=== PATIENT | female | born 1965 | race Caucasian/White ===

== ENCOUNTER 2022-06-06 11:31 | Emergency (ER) | payer OTHER, SELFPAY ==
[2022-06-06] VITALS (13 sets, daily range): BP systolic 109–125; BP diastolic 53–71; PULSE 74–83; RESP 14–28; TEMP 37.2; O2SAT 94–100; BMI 31.2
--- NOTE | 2022-06-06 12:22 | ED.WOUNDLAC ---
HPI - Wound/Laceration General Chief Complaint: Wound/Laceration Stated Complaint: poss. staff infection Time Seen by Provider: 06/06/22 12:20 Source: patient Mode of arrival: Ambulatory History of Present Illness HPI narrative: Patient is a 56-year-old female who presents with facial rash. She says that for last 1 week she has had fever on upper respiratory like symptoms. She has taken multiple COVID test they have all been negative. She then developed a facial rash over the last 3 days which has gotten worse over the last 24 hours. [place] with azithromycin. She states she lives in [place] she came here recently to help with her daughter. Labeled have been sick with body aches and fevers. She denies any itching. She has taken some antihistamines. She overall does not feel well. Related Data Previous Rx's Medication Instructions Recorded cephalexin 500 mg capsule 500 mg PO TID #21 caps 06/06/22 Review of Systems Review of Systems Narrative: GENERAL: Fevers body see HPI HEENT: Denies sinus pain, ear pain, sore throat, difficulty swallowing, neck pain RESPIRATORY: Denies dyspnea, cough, wheezing, hemoptysis, sputum. CARDIOVASCULAR: Denies chest pain, palpitations, orthopnea, edema GASTROINTESTINAL: Denies nausea, vomiting, abdominal pain, diarrhea, constipation, melena. : Denies dysuria, frequency, incontinence, hematuria, urinary retention, flank pain. MUSCULOSKELETAL: Denies weakness, joint pain, or bony pain SKIN: See HPI NEUROLOGIC: Denies weakness, dizziness, headache, numbness, change in speech, confusion PSYCHIATRIC: No concerning psychosocial issues. 12 point review of systems is negative except for those stated above and HPI Patient History Surgical History History of third molar tooth extraction Status post knee surgery Family History Brother Age: 60 Hypertension Grandmother Heart disease Grandfather Age: 71 Bladder cancer Grandmother Heart disease alcohol intake frequency: holidays/special occasions only Exam Initial Vital Signs Initial Vital Signs: Vital Signs Temperature 99 F 06/06/22 11:41 Pulse Rate 83 06/06/22 11:41 Respiratory Rate 20 06/06/22 11:41 Blood Pressure 125/61 06/06/22 11:41 Pulse Oximetry 100 06/06/22 11:41 Oxygen Delivery Method 06/06/22 11:41 GENERAL: Alert 56-year-old female and in [no acute] distress. HEENT: Head atraumatic,EOMI, pupils reactive, face symmetric, [moist] mucous membranes CARDIOVASCULAR: Regular rate and rhythm without murmurs, rubs or gallops. RESPIRATORY: Breath sounds equal bilaterally, no wheezes rales or rhonchi. ABDOMEN: Soft, nontender. Normoactive bowel sounds all 4 quadrants. No guarding or rebound. EXTREMITIES: Normal range of motion, no clubbing or edema. Neurovascularly intact NEUROLOGICAL: Alert and oriented x4.Normal gait and speech. SKIN: Significant erythema over forehead. No pox like or vesicular lesions. Bilateral. Course Orders Ordered: ED Orders 06/06/22 12:00 CBC Auto Diff [Complete Blood Count AUTO DIFF] Stat CMP [Comprehensive Metabolic Panel] Stat Lactate (Lactic Acid) Stat Procalcitonin Stat 06/06/22 12:46 Respiratory Panel (Film Array) Stat 06/06/22 12:50 Blood Culture Stat Discontinued Medications Ceftriaxone Sodium 1,000 mg/ (Sodium Chloride) 100 mls @ 200 mls/hr IV NOW ONE Stop: 06/06/22 12:34 Last Infusion: 06/06/22 13:39 Dose: 0 mls/hr Documented By: Admin: 06/06/22 12:56 Dose: 200 mls/hr Documented By: AMU Methylprednisolone (Methylprednisolone 125 Mg/2 Ml Vial) 125 mg IV NOW ONE Stop: 06/06/22 12:34 Last Admin: 06/06/22 12:56 Dose: 125 mg Documented By: AMU Vital Signs Vital signs: Vital Signs - 8 hr 06/06/22 11:41 06/06/22 11:51 06/06/22 11:52 Temperature 99 F Pulse Rate 83 82 Respiratory Rate 20 19 Blood Pressure 125/61 118/57 L Pulse Oximetry 100 99 Oxygen Delivery Method Room Air 06/06/22 11:52 06/06/22 12:00 06/06/22 12:00 Temperature Pulse Rate 81 78 Respiratory Rate 24 16 Blood Pressure 125/58 L Pulse Oximetry 97 97 Oxygen Delivery Method 06/06/22 12:30 06/06/22 12:30 06/06/22 13:00 Temperature Pulse Rate 80 74 Respiratory Rate 24 24 Blood Pressure 124/71 Pulse Oximetry 95 95 Oxygen Delivery Method 06/06/22 13:01 06/06/22 13:01 06/06/22 13:30 Temperature Pulse Rate 78 Respiratory Rate 14 Blood Pressure 114/53 L 119/57 L Pulse Oximetry 96 Oxygen Delivery Method 06/06/22 13:30 06/06/22 14:00 06/06/22 14:01 Temperature Pulse Rate 74 76 75 Respiratory Rate 16 28 H 24 Blood Pressure Pulse Oximetry 96 96 95 Oxygen Delivery Method 06/06/22 14:01 06/06/22 14:30 06/06/22 14:31 Temperature Pulse Rate 75 78 Respiratory Rate 24 19 Blood Pressure 109/55 L Pulse Oximetry 94 96 Oxygen Delivery Method 06/06/22 14:31 06/06/22 15:00 06/06/22 15:00 Temperature Pulse Rate 74 Respiratory Rate 20 Blood Pressure 111/59 L 123/58 L Pulse Oximetry 94 Oxygen Delivery Method MDM - Wound/Laceration Lab Data Result diagrams: 06/06/22 12:00 06/06/22 12:00 Labs: Lab Results 06/06/22 06/06/22 06/06/22 Range/Units 12:00 12:00 12:00 WBC 9.3 (4.5-11.0) X10^3/uL RBC 4.40 (4.0-5.2) X10^6/uL Hgb 13.7 (12.0-16.0) g/dL Hct 39.0 (36-46) % MCV 88.5 (80-100) fL MCH 31.0 (26-34) PG MCHC 35.1 (30-36) % RDW 13.6 (11.6-14.8) % Plt Count 234 (150-400) X10^3/uL Neut % (Auto) 71.9 (50-75) % Lymph % (Auto) 19.6 L (25-40) % [place] % (Auto) 7.9 (3-14) % Eos % (Auto) 0.1 L (2-4) % Baso % (Auto) 0.5 (0-2) % Neut # (Auto) 6700 (6756-6845) /uL Lymph # (Auto) 1800 (1286-2374) /uL [place] # (Auto) 700 (0-900) /uL Eos # (Auto) 0 (0-450) /uL Baso # (Auto) 0 (0-100) /uL Sodium 139 (137-145) mmol/L Potassium 3.7 (3.4-5.1) mmol/L Chloride 104 (98-107) mmol/L Carbon Dioxide 24 (22-32) mmol/L BUN 12 (7-17) mg/dL Creatinine 0.79 (0.52-1.04) mg/dL Estimated GFR > 60 (>60) mL/min BUN/Creatinine Ratio 15.2 (6-22) Glucose 135 H (70-100) mg/dL Lactate 1.4 (0.7-2.1) mmol/L Calcium 8.8 (8.4-10.2) mg/dL Total Bilirubin 0.5 (0.2-1.3) mg/dL AST 42 H (14-36) IU/L ALT 61 H (<35) IU/L Alkaline Phosphatase 82 (38-126) U/L Total Protein 8.0 (6.3-8.2) g/dL Albumin 4.6 (3.5-5.0) g/dL Globulin 3.4 (1.7-4.1) g/dL Albumin/Globulin Ratio 1.4 (1.0-2.8) Procalcitonin 0.21 (<0.5) ng/mL Chlamy pneumoniae PCR (Not Detect) Adenovirus (PCR) (Not Detect) B. pertussis DNA (PCR) (Not Detecte) B.parapertussis DNA PCR (Not Detecte) Coronavirus OC43 (PCR) (Not Detect) Coronavirus HKU1 (PCR) (Not Detect) Coronavirus 229E (PCR) (Not Detect) SARS-CoV-2 (PCR) (Not Detecte) Coronavirus NL63 (PCR) (Not Detect) Human Metapneumovir PCR (Not Detect) Influenza Type A (PCR) (Not Detect) Influenza Type B (PCR) (Not Detect) M. pneumoniae (PCR) (Not Detect) Parainfluenza 1 (PCR) (Not Detect) Parainfluenza 2 (PCR) (Not Detect) Parainfluenza 3 (PCR) (Not Detect) Parainfluenza 4 (PCR) (Not Detect) RSV (PCR) (Not Detect) Entero/Rhino (PCR) (Not Detect) 06/06/22 Range/Units 12:46 WBC (4.5-11.0) X10^3/uL RBC (4.0-5.2) X10^6/uL Hgb (12.0-16.0) g/dL Hct (36-46) % MCV (80-100) fL MCH (26-34) PG MCHC (30-36) % RDW (11.6-14.8) % Plt Count (150-400) X10^3/uL Neut % (Auto) (50-75) % Lymph % (Auto) (25-40) % [place] % (Auto) (3-14) % Eos % (Auto) (2-4) % Baso % (Auto) (0-2) % Neut # (Auto) (5835-7533) /uL Lymph # (Auto) (4460-8454) /uL [place] # (Auto) (0-900) /uL Eos # (Auto) (0-450) /uL Baso # (Auto) (0-100) /uL Sodium (137-145) mmol/L Potassium (3.4-5.1) mmol/L Chloride (98-107) mmol/L Carbon Dioxide (22-32) mmol/L BUN (7-17) mg/dL Creatinine (0.52-1.04) mg/dL Estimated GFR (>60) mL/min BUN/Creatinine Ratio (6-22) Glucose (70-100) mg/dL Lactate (0.7-2.1) mmol/L Calcium (8.4-10.2) mg/dL Total Bilirubin (0.2-1.3) mg/dL AST (14-36) IU/L ALT (<35) IU/L Alkaline Phosphatase (38-126) U/L Total Protein (6.3-8.2) g/dL Albumin (3.5-5.0) g/dL Globulin (1.7-4.1) g/dL Albumin/Globulin Ratio (1.0-2.8) Procalcitonin (<0.5) ng/mL Chlamy pneumoniae PCR Not detected (Not Detect) Adenovirus (PCR) Not detected (Not Detect) B. pertussis DNA (PCR) Not detected (Not Detecte) B.parapertussis DNA PCR Not detected (Not Detecte) Coronavirus OC43 (PCR) Not detected (Not Detect) Coronavirus HKU1 (PCR) Not detected (Not Detect) Coronavirus 229E (PCR) Not detected (Not Detect) SARS-CoV-2 (PCR) Not detected (Not Detecte) Coronavirus NL63 (PCR) Not detected (Not Detect) Human Metapneumovir PCR Not detected (Not Detect) Influenza Type A (PCR) Not detected (Not Detect) Influenza Type B (PCR) Not detected (Not Detect) M. pneumoniae (PCR) Not detected (Not Detect) Parainfluenza 1 (PCR) Not detected (Not Detect) Parainfluenza 2 (PCR) Not detected (Not Detect) Parainfluenza 3 (PCR) Not detected (Not Detect) Parainfluenza 4 (PCR) Not detected (Not Detect) RSV (PCR) Not detected (Not Detect) Entero/Rhino (PCR) Not detected (Not Detect) MDM Narrative Medical decision making narrative: The patient has had what sounds like upper respiratory like infection with high fevers her daughter and had something similar. However she today has facial rash. Does not seem to be shingles in nature it is bilateral across real forehead there are no vesicles. There are no pox to suggest a Monkey pox infection. Probable cellulitis although blood work is overall reassuring. Also considered allergic reaction with female of swelling however she does not have any other swelling or hives anywhere else on her body. She is given a dose of Solu-Medrol which she feels like has helped some of the swelling and a dose of IV antibiotics Rocephin. Azithromycin not appropriate skin antibiotic she has changed over to Keflex she has no risk factors for MRSA at this time. Her respiratory panel also found to be negative. Discharge Plan Departure Patient Disposition: Home Clinical Impression: Cellulitis of face Instructions: Cellulitis Activity Restrictions/Additional Instructions: *You have been diagnosed with facial cellulitis *What to do: At this time blood work is overall reassuring. Probable cellulitis of her face. Will try antibiotics for 1 week to see if there is improvement. *Continue to take medications as directed Keflex 500 mg 3 times a day *Follow up with your primary care provider in 2-3 days or call [phone] *Return to ER if you should have increased redness, difficulty breathing, persistent fever or any new, worsening or concerning symptoms Prescriptions: New cephalexin 500 mg capsule 500 mg PO TID Qty: 21 0RF Referrals: Brenda Rosa ARNP [Primary Care Provider] - Visit Report Forms: Patient Portal/API
[2022-06-06 12:28] LABS: Add Manual Diff / Slide Review NO; Basophils Absolute Auto 0 /uL (0-100); Basophils Percent Auto 0.5 % (0-2); Eosinophils Absolute Auto 0 /uL (0-450); Eosinophils Percent Auto 0.1 % (2-4); Hemoglobin 13.7 g/dL (12.0-16.0); Lymphocytes Absolute Auto 1800 /uL (1100-4500); Lymphocytes Percent Auto 19.6 % (25-40); Mean Corpuscular HGB Conc 35.1 % (30-36); Mean Corpuscular Volume 88.5 fL (80-100); Monocytes Absolute Auto 700 /uL (0-900); Monocytes Percent Auto 7.9 % (3-14); Neutrophils Absolute Auto 6700 /uL (1500-7000); Neutrophils Percent Auto 71.9 % (50-75); Platelet Count 234 X10^3/uL (150-400); Red Cell Distribution Width 13.6 % (11.6-14.8); White Blood Cell Count 9.3 X10^3/uL (4.5-11.0)
[2022-06-06 12:34] LABS: Alanine Aminotransferase 61 IU/L (<35); Albumin 4.6 g/dL (3.5-5.0); Albumin Globulin Ratio 1.4 (1.0-2.8); Alkaline Phosphatase 82 U/L (38-126); Aspartate Aminotransferase 42 IU/L (14-36); BUN Creatinine Ratio 15.2 (6-22); Bilirubin Total 0.5 mg/dL (0.2-1.3); Blood Urea Nitrogen 12 mg/dL (7-17); Calcium 8.8 mg/dL (8.4-10.2); Carbon Dioxide 24 mmol/L (22-32); Chloride 104 mmol/L (98-107); Estimated Glomerular Filt Rate > 60 mL/min (>60); Globulin 3.4 g/dL (1.7-4.1); Glucose 135 mg/dL (70-100); HEMOLYSIS < 15 (0-50); Potassium 3.7 mmol/L (3.4-5.1); Sodium 139 mmol/L (137-145)
[2022-06-06 12:35] LABS: Lactate (Lactic Acid) 1.4 mmol/L (0.7-2.1)
[2022-06-06 12:51] LABS: Procalcitonin 0.21 ng/mL (<0.5)
[2022-06-06] MEDS: cefTRIAXone 1,000 MG in SODIUM CHLORIDE 0.9% 100 ML 200 MG IV (12:56)
[2022-06-06] MEDS: methylPREDNISolone 125 MG/2 ML VIAL IV (12:56)
[2022-06-06 14:20] LABS: Adenovirus Not Detected (Not Detect); B. parapertussis Not Detected (Not Detecte); Bordetella pertussis Not Detected (Not Detecte); Chlamydophila pneumoniae Not Detected (Not Detect); Coronavirus 229E Not Detected (Not Detect); Coronavirus HKU1 Not Detected (Not Detect); Coronavirus NL 63 Not Detected (Not Detect); Coronavirus OC43 Not Detected (Not Detect); Human Metapneumovirus Not Detected (Not Detect); Human Rhinovirus/Enterovirus Not Detected (Not Detect); Influenza A Not Detected (Not Detect); Influenza B Not Detected (Not Detect); Mycoplasma pneumoniae Not Detected (Not Detect); Parainfluenza Virus 1 Not Detected (Not Detect); Parainfluenza Virus 2 Not Detected (Not Detect); Parainfluenza Virus 3 Not Detected (Not Detect); Parainfluenza Virus 4 Not Detected (Not Detect); Respiratory Syncytial Virus Not Detected (Not Detect); SARS- CoV-2 Not Detected (Not Detecte)
== END 2022-06-06 15:23 | disposition home or self-care (01) ==
PROVIDERS: Emergency Provider Emergency Medicine; Family Provider Nurse Practitioner; PCP Nurse Practitioner
DX: L03.211 Cellulitis of face (principal); Z20.822 Contact with and (suspected) exposure to COVID-19
CPT/HCPCS: 36415; 80053; 83605; 84145; 85025; 87040; 87633; 96365; 96375; 99284; J0696; J2930